=== PATIENT | male | born 2000 | race Caucasian/White ===

== ENCOUNTER 2020-05-04 16:01 | Emergency (ER) | payer OTHER, BC ==
[~2020-05-04] VITALS: Ht 175.3 cm; Wt 65.4 kg
[2020-05-04 16:10] VITALS: BP 118/67
--- NOTE | 2020-05-04 17:05 | NUR ---
PT RESTING COMFORTABLY. NO NEEDS AT THIS TIME.
== END 2020-05-04 17:28 | disposition home or self-care (01) ==
LOC: ED 16:30
DX: R06.00 Dyspnea, unspecified (principal); R06.02 Shortness of breath; R94.31 Abnormal electrocardiogram [ECG] [EKG]
CPT/HCPCS: 71045; 93005; 99283